=== PATIENT | male | born 1950 | race Two or more races ===

== ENCOUNTER 2024-04-15 07:13 | Outpatient (CLI) | payer OTHER | END 2024-04-15 07:19 | disposition home or self-care (01) | LOC: NUCLEAR 07:13 | PROVIDERS: ATTEND Specialist | DX: C61 Malignant neoplasm of prostate (principal); N39.3 Stress incontinence (female) (male); R97.20 Elevated prostate specific antigen [PSA] | CPT/HCPCS: 78306; A9503 ==